=== PATIENT | female | born 1955 | race Caucasian/White ===

== ENCOUNTER 2016-10-28 07:03 | Day surgery (SDC) ==
[2016-10-28] MEDS ORDERED: LIDOCAINE 1% 20 ML MDV ID ONE (07:24)
[2016-10-28] MEDS ORDERED: LIDOCAINE 1% 20 ML MDV ONE (07:24)
[2016-10-28] MEDS ORDERED: DIPRIVAN 20 ML VIAL IVP ONE (08:45)
[2016-10-28] MEDS ORDERED: VERSED ONE (08:45)
[2016-10-28 10:06] VITALS: BP 111/67; TEMP 97.6
--- NOTE | 2016-10-28 14:10 | OP ---
PROCEDURE: COLONOSCOPY TO THE ANASTOMOSIS. ENDOSCOPIST: Abe BURNETT M.D. INDICATION: HISTORY OF COLON CANCER; HISTORY OF POLYPS; LAST COLONOSCOPY WAS SUBOPTIMAL PREPARATION IN 2016. 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 MEDICATION: PER ANESTHESIA. PROCEDURE: The patient was positioned for colonoscopy. The digital rectal exam was negative. The colonoscope was inserted through the anus and advanced to the anastomosis. The patient has undergone a right colectomy. The exam was normal with exception of diverticula noted throughout the remaining colon. Retroflex exam was normal. Withdrawal time was 7 minutes and 15 seconds. PLAN: 1. Suggest repeat colonoscopy in 3 years. CC: DR. YUSRA BARRERA
== END 2016-10-28 10:30 | disposition home or self-care (01) ==
LOC: SURG 07:03
PROVIDERS: ATTEND Internal Medicine Gastroenterology
DX: Z85.038 Personal history of other malignant neoplasm of large intestine (principal); Z86.010 Personal history of colon polyps; K57.30 Diverticulosis of large intestine without perforation or abscess without bleeding; Z90.49 Acquired absence of other specified parts of digestive tract; E11.9 Type 2 diabetes mellitus without complications